=== PATIENT | female | born 1970 | race Caucasian/White ===

== ENCOUNTER → 2019-12-31 17:32 | Outpatient (CLI) | payer OTHER, SELFPAY ==
--- NOTE | ~2019-12-31 | MR_ITS ---
EXAMINATION: MR lumbar spine wo con DATE: 12/31/2019 18:06 INDICATION: Low back pain. Bilateral leg numbness and tingling. Lumbar radiculopathy. TECHNIQUE: Magnetic resonance imaging (MRI) of the lumbar spine was performed without intravenous con trast. Sequences included sagittal T2-weighted FSE, sagittal T2-weighted FS FSE, sagittal T1-weighted FSE, and axial T2-weighted FSE. COMPARISON: Lumbar spine MRI 09/22/2016 FINDINGS: There is a transitional segment at the lumbosacral junction that is designated S1. There ar e chronic bilateral L5 pars defects. There is 7 mm anterolisthesis of L5 on S1. There is mild chronic height loss of L5 vertebral body posteriorly. There is 3 mm retrolisthesis of L4 on L5. There is mil dly decreased disc height at L4-L5 and moderately decreased disc height at L5-S1. The distal spinal c ord signal intensity is normal. The conus medullaris is at L1. The following disc levels are specific ally discussed: L1-L2: The disc does not extend beyond the endplate margin. There is mild bilateral facet joint osteo arthritis. There is no neural foraminal stenosis. There is no central canal stenosis. L2-L3: The disc does not extend beyond the endplate margin. There is mild bilateral facet joint osteo arthritis. There is no neural foraminal stenosis. There is no central canal stenosis. L3-L4: The disc does not extend beyond the endplate margin. There is mild lateral facet joint osteoar thritis. There is no neural foraminal stenosis. There is no central canal stenosis. L4-L5: The disc does not extend beyond the endplate margin. There is moderate bilateral facet joint o steoarthritis. There is no neural foraminal stenosis. There is no central canal stenosis. L5-S1: The disc is bulging and has an annular fissure. There is mild bilateral facet joint osteoarthr itis. There is moderate bilateral neural foraminal stenosis. There is mild central canal stenosis. IMPRESSION: 1. Chronic bilateral L5 pars defects with grade 1 anterolisthesis of L5 on S1. 2. Moderate lower lumbar spondylosis, stable from 09/22/2016. Reviewed, dictated and finalized at location A. [employer]
== END ==
PROVIDERS: Visit Provider Nurse Practitioner Family
DX: M47.26 Other spondylosis with radiculopathy, lumbar region (principal)
CPT/HCPCS: 72148

== ENCOUNTER 2020-05-15 13:53 | Outpatient (CLI) | payer OTHER, SELFPAY ==
--- NOTE | ~2020-05-15 | XR_ITS ---
XR lumbar spine 6V w bending 05/15/2020 14:31 Indication: Low back pain. Spondylosis. Procedure: 7 views lumbar spine including flexion/extension views Comparison: 12/03/2011 Findings: There is grade 2 spondylolisthesis at L5-S1 secondary to spondylolysis. There is mild disc narrowing at L4-5 and L5-S1. No acute fracture is identified. The anterolisthesis at L5 appears exagg erated with standing images. Impression: 1: Mild lumbar spondylosis with grade 2 spondylolisthesis at L5-S1 secondary to spondylolysis. Reviewed, dictated and finalized at location A. Impression: 1: Mild lumbar spondylosis with grade 2 spondylolisthesis at L5-S1 secondary to spondylolysis.
== END 2020-05-15 13:54 | disposition home or self-care (01) ==
LOC: ANHIMG 14:02
PROVIDERS: PCP Family Medicine; Visit Provider Physical Medicine & Rehabilitation Pain Medicine
DX: M47.896 Other spondylosis, lumbar region (principal)
CPT/HCPCS: 72114

== ENCOUNTER 2020-08-10 13:59 | Emergency (ER) | payer OTHER, SELFPAY ==
--- NOTE | ~2020-08-10 | XR_ITS ---
EXAMINATION: XR finger 3rd RT min 2V DATE: 08/10/2020 14:30 INDICATION: Pain at the third metacarpal TECHNIQUE: Dorsal palmar, lateral and 2 oblique views of the right third digit were obtained COMPARISON: None FINDINGS: Soft tissue swelling about the third metacarpophalangeal joint. Bone alignment is normal. No fracture . Minimal osteoarthritis at a few of the interphalangeal joints. No cortical erosions or periosteal r eaction. IMPRESSION: 1. No acute osseous abnormality. Reviewed, dictated and finalized at location A.
[2020-08-10 14:22] VITALS: BP 127/88; PULSE 103; RESP 20; TEMP 37; O2SAT 100
--- NOTE | 2020-08-10 14:44 | PC.NURSE ---
PT DECLINED ICE FOR COMFORT
--- NOTE | 2020-08-10 14:51 | ED.GENADULT ---
HPI - General Adult General Chief complaint: Extremity Injury, Upper Stated complaint: right hand injury Time Seen by Provider: 08/10/20 14:52 Source: patient Mode of arrival: ambulatory Limitations: no limitations History of Present Illness HPI narrative: 49-year-old female patient presents to the [facility] with complaints of right middle finger pain since yesterday. Patient states that she had a water bottle Yesterday and went to go and liquid with her middle finger and states right after she did that she immediately felt pain going up the middle finger into the right hand. Patient states that this morning when she woke up she noticed that there was swelling and had trouble extending the right middle finger. Patient states she is right-hand dominant. Patient states she typically takes Percocet at home for chronic pain. Patient states she has been taking that for this pain as well. Related Data Home Medications Medication Instructions Recorded Confirmed hydrocodone 5 mg-acetaminophen 325 1 tablet PO Q8H PRN 10/10/19 08/10/20 mg tablet fexofenadine-pseudoephedrine 1 tablet PO QAM 08/10/20 08/10/20 [Thais-D 24 Hour] Allergies Allergy/AdvReac Type Severity Reaction Status Date / Time bee venom protein (honey bee) Allergy Unknown swelling Verified 08/10/20 14:35 Review of Systems Review of Systems: Narrative: CONSTITUTIONAL: Denies fever, chills, or sweats. EYES: Denies visual changes, redness, or discharge. ENT: Denies rhinorrhea, congestion, sore throat, or otalgia. CARDIOVASCULAR: Denies chest pain, palpitations, or edema. RESPIRATORY: Denies cough or dyspnea. GASTROINTESTINAL: Denies abdominal pain, nausea, vomiting, or diarrhea. GENITOURINARY: Denies dysuria or hematuria. SKIN: Denies rash or itching. MUSCULOSKELETAL: Denies back pain, joint pain, or myalgia. Positive right middle finger pain NEUROLOGIC: Denies headache, numbness, or weakness. PSYCHIATRIC: Denies anxiety or depression. [facility] Past Medical History Medical History Cocaine abuse Social History Social History Smoking status: Former smoker Smoking end date: 11/07/09 Alcohol intake: current Comments At the time of my signature I agree with nursing past medical history, surgical, social, and family history. There is no relevant family history pertinent to the presenting complaint. Exam Narrative: Exam Narrative: GENERAL: Well-appearing, well-nourished, and in no acute distress. HEAD: Normocephalic, atraumatic. EYES: PERRLA and EOMI. ENT: Nares clear, no rhinorrhea or epistaxis. Mucous membranes moist. NECK: Supple. No lymphadenopathy CHEST: Clear to auscultation. No respiratory distress. HEART: Regular rate and rhythm. No murmur heard. Normal peripheral pulses. ABDOMEN: Soft, nontender, nondistended, normal active bowel sounds. EXTREMITIES: The R hand is without obvious asymmetry or deformity when compared to the L hand. No erythema, atrophy, or obvious deformity. There is some swelling noted over the MCP joint of the middle finger on the right hand. There is tenderness noted to the MCP joint to the middle finger of the right hand. No surface trauma, open wounds, nail avulsion, tissue avulsion, partial or complete amputation, subungual hematoma, bony deformity. Normal cascade of fingers. Normal flexion and extension of fingers but patient states she does have difficulty doing this due to pain and swelling.. FDS and FDP intact aganist restistance. No focal fullness, thobbing pain, swelling of fingertip. Pulses and cap refill. SKIN: Warm, dry, no rash. NEURO: No focal deficits. Alert and oriented x3. Course Vital Signs Vital signs: Vital Signs Temperature 37.0 C 08/10/20 14:22 Pulse Rate 103 H 08/10/20 14:22 Respiratory Rate 20 08/10/20 14:22 Blood Pressure 127/88 08/10/20 14:22 Pulse Oximetry 100 08/10/20 14:
== END 2020-08-10 15:12 | disposition home or self-care (01) ==
PROVIDERS: Emergency Provider Nurse Practitioner Family; PCP Family Medicine
DX: S63.692A Other sprain of right middle finger, initial encounter (principal); W22.8XXA Striking against or struck by other objects, initial encounter; K21.9 Gastro-esophageal reflux disease without esophagitis; Z87.891 Personal history of nicotine dependence
CPT/HCPCS: 29130; 73140; 99213; G0463

== ENCOUNTER 2022-05-06 12:10 | Outpatient (CLI) | payer OTHER, SELFPAY ==
--- NOTE | ~2022-05-06 | MR_ITS ---
EXAMINATION: MR lumbar spine wo con DATE: 05/06/2022 12:38 INDICATION: Chronic bilateral low back pain with bilateral sciatica TECHNIQUE: Magnetic resonance imaging (MRI) of the lumbar spine was performed without intravenous con trast. Sequences included sagittal T2-weighted FSE, sagittal T2-weighted FS FSE, sagittal T1-weighted FSE, and axial T2-weighted FSE. COMPARISON: FINDINGS: L5 spondylolysis with bilateral pars interarticularis defects and 8 mm anterolisthesis L5 on S1. 3 mm retrolisthesis L4 on L5. Moderate disc height loss at L5-S1 with annular fissure. Associated fibrova scular degenerative endplate changes and mild posterior vertebral body height loss at L5 which may re flect chronic remodeling. Remaining vertebral body heights and marrow signal are normal. Disc desicca tion and mild disc height loss at L4-L5. The conus medullaris terminates at L1-L2. There is normal si gnal in the caudal spinal cord. Paravertebral soft tissues are unremarkable. The following disc level s are specifically discussed: T12-L1: The disc does not extend beyond the endplate margin. There is moderate bilateral facet joint osteoarthritis. There is no neural foraminal stenosis. There is no central canal stenosis. L1-L2 through L3-L4: The disc does not extend beyond the endplate margin. There is mild bilateral fac et joint osteoarthritis. There is no neural foraminal stenosis. There is no central canal stenosis. L4-L5: Disc is minimally bulging. There is mild bilateral facet joint osteoarthritis. There is modera te bilateral neural foraminal stenosis. There is no central canal stenosis. L5-S1: Annular fissure and broad-based disc extrusion extending from foraminal zone to foraminal zone with disc material extending up to 4 mm cephalad to the level of the inferior endplate of L5. There is mild bilateral facet joint osteoarthritis. There is moderate bilateral neural foraminal stenosis. There is however more severe stenosis lateral to the neural foramen with compression of the bilateral L5 nerve roots between the posterolateral aspects of the disc and the posterior elements of L5 at th e junction of the pedicles and transverse processes. There is mild central canal stenosis. IMPRESSION: 1. Chronic bilateral L5 pars intra-articular is defects with slight increase in now 8 mm anterolisthe sis of L5 on S1. 2. Unchanged moderate lower lumbar spondylosis. Reviewed, dictated and finalized at location A. IMPRESSION: 1. Chronic bilateral L5 pars intra-articular is defects with slight increase in now 8 mm anterolisthesis of L5 on S1. 2. Unchanged moderate lower lumbar spondylosis.
== END 2022-05-06 12:11 ==
PROVIDERS: PCP Family Medicine
DX: M54.42 Lumbago with sciatica, left side (principal); M54.41 Lumbago with sciatica, right side; G89.29 Other chronic pain; M47.896 Other spondylosis, lumbar region
CPT/HCPCS: 72148

== ENCOUNTER 2024-05-28 13:37 | Emergency (ER) | payer OTHER, SELFPAY ==
--- NOTE | ~2024-05-28 | XR_ITS ---
XR foot RT min 3V 05/28/2024 13:56 INDICATION: Right foot pain PROCEDURE: 4 views right foot COMPARISON: No prior studies for comparison. FINDINGS: Fracture, dislocation or subluxation is not identified. There is mild diffuse soft tissue s welling. No foreign bodies are identified. IMPRESSION: 1: NO ACUTE BONE OR JOINT ABNORMALITY IDENTIFIED. Reviewed, dictated and finalized at location B.
--- NOTE | 2024-05-28 13:39 | ED.LOWEXIN ---
HPI - Extremity Injury (Lower) General Chief Complaint: Extremity Injury, Lower Stated Complaint: Right Foot Pain Time Seen by Provider: 05/28/24 13:38 Source: patient Mode of arrival: ambulatory Limitations: no limitations History of Present Illness HPI Narrative: Emmy is a 53-year-old female patient presenting to the clinic today with complaints of right dorsal foot pain. She reports she accidentally power washed the top of her right foot 2 days ago. Is having pain and swelling to the dorsal foot and pain with ambulation. Is concerned that she may have fractured her foot. Related Data Allergies Allergy/AdvReac Type Severity Reaction Status Date / Time bee venom protein (honey bee) Allergy Unknown swelling Verified 05/28/24 13:56 Review of Systems Review of Systems: Pertinent positives per HPI. Patient denies any fever, chills, rash, headache, visual changes, dizziness, cough, shortness of breath, chest pain, palpitations, nausea, vomiting, diarrhea, constipation, abdominal pain, or any urinary issues. [facility] Past Medical History Medical History Allergic rhinitis Cocaine abuse Social History Social History Smoking status: Former smoker Tobacco type: e-cigarettes/vaping Smoking end date: 11/07/09 Alcohol intake: current Lack of Transportation: YES Lack of Food: Never True Current Housing: I Have Housing Concerned About Future Housing: No Difficulty Paying Gas/Electric Bills: No Difficulty Paying for Meds: YES Currently Unemployed: No Education: High School Diploma/GED Difficulty w/ Childcare or Family Care: No Comments At the time of my signature, I reviewed and agree with the nursing past medical, surgical, social, and family history. There is no relevant family history pertinent to the patient complaint. Exam Narrative: General: Well-developed, well nourished, in no apparent distress Head: Normocephalic, atraumatic. Cardio: Regular rate and rhythm, s1 and s2 normal, no murmur appreciated. Resp: Clear to auscultation bilaterally, no rhonchi, rales, wheezing or rubs. 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 Level of Care: Express Care Visit Vital Signs Vital signs: Vital signs reviewed MDM - Extremity Injury (Lower) MDM Narrative Medical decision making narrative: At the time of visit patient is resting comfortably on the exam table. Patient appears to be nontoxic. Diagnostic: Xray of the right foot was performed and was negative for any sign of fracture or malalignment. Plan: I suspect patient has soft tissue swelling due to injury/avulsion of skin. No sign of obvious infection at this time. Tdap updated in the clinic today. Supportive measures were discussed with the patient and they voiced understanding discharge instructions and agrees to treatment plan. Return precautions reviewed Differential Diagnosis Differential diagnosis: Likely fracture of toe and other (foot fracture, soft tissue injury, laceration/avulsion) Discharge Plan Discharge Clinical Impression: Acute foot pain Qualifiers: Laterality: right Qualified Code(s): M79.671 - Pain in right foot Avulsion of skin of foot Qualifiers: Encounter type: initial encounter Laterality: right Qualified Code(s): S91.301A - Unspecified open wound, right foot, initial encounter Patient Disposition: Home, Self-Care Condition: Stable Instructions: Antibiot
[2024-05-28 13:46] VITALS: BP 155/105; PULSE 85; RESP 15; TEMP 36.7; O2SAT 99
[2024-05-28] MEDS: TETANUS,DIPHTHERIA,AC PERTUSSIS ADULT (0.5 ML) BOOSTRIX IM (14:05)
== END 2024-05-28 14:19 | disposition home or self-care (01) ==
PROVIDERS: Emergency Provider Nurse Practitioner Family; PCP Family Medicine
DX: S91.301A Unspecified open wound, right foot, initial encounter (principal); X58.XXXA Exposure to other specified factors, initial encounter; Z23 Encounter for immunization
CPT/HCPCS: 73630; 90471; 90715; 99213; G0463

== ENCOUNTER 2024-07-05 11:53 | Outpatient (CLI) | payer OTHER, SELFPAY ==
--- NOTE | ~2024-07-05 | XR_ITS ---
Right Shoulder Technique: AP and scapular Y views were obtained. Clinical History: Arthropathy Findings: No fracture or dislocation is seen. Osseous alignment is anatomic. The glenohumeral joint i s intact. There is mild AC joint degenerative change. Probable small focus of calcific tendinitis at the rotator cuff insertion region. Impression: . Small focus of calcific tendinitis at the rotator cuff insertion. Mild AC joint degenerative change. Reviewed, dictated and finalized at location . Impression: . Small focus of calcific tendinitis at the rotator cuff insertion. Mild AC joint degenerative change.
== END 2024-07-05 11:54 ==
LOC: MICIMG 11:54
PROVIDERS: PCP Family Medicine; Visit Provider Family Medicine
DX: M12.811 Other specific arthropathies, not elsewhere classified, right shoulder (principal); M75.31 Calcific tendinitis of right shoulder
CPT/HCPCS: 73030